=== PATIENT | male | born 1965 | race Native Hawaiian/Other Pacific Islander ===

== ENCOUNTER 2022-07-25 14:39 | Outpatient (CLI) | payer BC | END 2022-07-25 22:02 | disposition home or self-care (01) | LOC: CT 14:39 | PROVIDERS: ATTEND Internal Medicine | DX: I77.71 Dissection of carotid artery (principal); R93.89 Abnormal findings on diagnostic imaging of other specified body structures | CPT/HCPCS: Q9963 ==